=== PATIENT | male | born 1995 | race Caucasian/White ===

== ENCOUNTER 2017-07-15 00:11 | Emergency (ER) | payer BC ==
[~2017-07-15] VITALS: Ht 175.3 cm; Wt 81.8 kg
[2017-07-15 00:31] VITALS: BP 141/91; TEMP 96.8
[2017-07-15] MEDS ORDERED: PERCOCET 325 MG1 TA2 PO (00:56)
[2017-07-15 01:15] VITALS: PULSE 96
== END 2017-07-15 01:22 | disposition home or self-care (01) ==
LOC: COL.ER 00:11
DX: T25.222A Burn of second degree of left foot, initial encounter (principal); T25.221A Burn of second degree of right foot, initial encounter; Z23 Encounter for immunization; X19.XXXA Contact with other heat and hot substances, initial encounter

== ENCOUNTER 2023-07-09 13:45 | Outpatient (RCR) | payer OTHER ==
[~2023-07-09 13:45] MED LIST: PERCOCET 325 MG1 TA2 PO
== END 2023-08-02 ==
LOC: PT.GENESIS
DX: M54.50 Low back pain, unspecified (principal)